=== PATIENT | female | born 1955 | race Caucasian/White ===

== ENCOUNTER 2021-03-15 04:45 | Inpatient (IN) ==
[2021-03-15 05:23] LABS: Basophils # 0.1 10*3/uL (0.0-0.2); Basophils % 1.1 % (0.0-0.8); Eosinophils # 1.5 10*3/uL (0.0-0.87); Eosinophils % 12.4 % (0.00-10.9); Hematocrit 51.2 VOL% (35.7-47.0); Hemoglobin 16.7 GM/DL (12.0-16.0); Immature Granulocytes % 0.5 %; Immature Granulocytes Absolute 0.06 #; Lymphocytes # 2.1 10*3/uL (1.4-4.0); Lymphocytes % 17.6 % (21.3-54.2); Mean Corpuscular HGB Conc 32.6 GM/DL (32-36); Mean Corpuscular Volume 92.6 FL (87-102); Mean Platelet Volume 9.3 FL (9.6-12.0); Monocytes % 7.6 % (1.7-12.7); Neutrophils % 60.8 % (38.7-73.9); Platelet Count 254 T/CUMM (130-400); Red Blood Count 5.53 MC/CUMM (3.8-5.5); Red Cell Distribution Width 13.5 % (9.3-17.3); White Blood Count 12.2 T/CUMM (4-12)
[2021-03-15 05:31] LABS: PT Patient Result 10.9 SECS (10.5-12.0); Partial Thromboplastin Time 25.6 SECS (23.9-33.8)
[2021-03-15 05:35] LABS: Albumin 4.1 G/DL (3.4-5.0); Bilirubin,Total 0.4 MG/DL (0.2-1.0); Calcium 9.3 MG/DL (8.5-10.1); Osmolality,Calculated 277.5 MOS/KG (273-304); Potassium 4.1 MMOL/L (3.5-5.1); Total Protein 7.3 G/DL (6.4-8.2)
[2021-03-15 05:42] LABS: Eosinophils 12 % (0-10); Lymphocytes 10 % (20-55); Platelet Estimate Adequate; Segmented Neutrophils 70 % (50-85); Total Cells Counted 100
[2021-03-15] MEDS ORDERED: methylPREDNISolone SOD SUC 125 MG/2 ML VIAL IV STA (06:24)
[2021-03-15] MEDS ORDERED: ALBUTEROL/IPRATROPIUM 3 ML NEB RESP TX STA (06:24)
[2021-03-15] MEDS ORDERED: cefTRIAXone 1,000 MG in SODIUM CHLORIDE 0.9% 100 ML IV STA (06:24)
[2021-03-15 06:53] LABS: ABG Base Excess 0.5 MMOL/L (-2.5-2.5); ABG HCO3 24.7 MMOL/L (20-26); ABG Oxygen Saturation 91.8 % (95-100); ABG PCO2 44.2 MM HG (35-48); ABG PH 7.379 (7.35-7.45); ABG PO2 66.5 MM HG (80-95); ABG TCO2 21.9 MMOL/L (23-27)
[2021-03-15] MEDS: ALBUTEROL 2.5 MG/3 ML NEB RESP TX STA ×2 (07:25→08:30)
[2021-03-15] MEDS ORDERED: ONDANSETRON 4 MG/2 ML VIAL IV PRN (08:01)
[2021-03-15] MEDS ORDERED: ACETAMINOPHEN 325 MG TABLET PO PRN (08:01)
[2021-03-15] MEDS ORDERED: GLUCAGON 1 MG VIAL IM PRN (08:01)
[2021-03-15] MEDS ORDERED: DEXTROSE 50% 25 GM/50 ML VIAL IV PRN (08:01)
[2021-03-15] MEDS: cefTRIAXone 1,000 MG in SODIUM CHLORIDE 0.9% 100 ML IV SCH (08:16)
[2021-03-15] MEDS: methylPREDNISolone SOD SUC 40 MG/1 ML VIAL IV SCH ×2 (08:17→16:46)
[2021-03-15] MEDS: ALBUTEROL/IPRATROPIUM 3 ML NEB RESP TX SCH ×3 (08:30→19:47)
[2021-03-15] MEDS: ENOXAPARIN 40 MG/0.4 ML SYRINGE SUBCUT SCH (08:38)
[2021-03-15] MEDS: AZITHROMYCIN INJ 500 MG in SODIUM CHLORIDE 0.9% 250 ML IV SCH (08:38)
[2021-03-15] MEDS: PANTOPRAZOLE 40 MG TABLET PO SCH (09:00)
[2021-03-15] MEDS: NICOTINE 21 MG/24 HR PATCH TRANSDERM SCH (09:59)
[2021-03-15] MEDS ORDERED: MAGNESIUM SULF RIDER 2 GM/50 ML PREMIX IV PRN (13:56)
[2021-03-15] MEDS ORDERED: POTASSIUM CHLORIDE RIDER 10 MEQ/100 ML PREMIX IV PRN (13:56)
[2021-03-15] MEDS: ASPIRIN EC 81 MG TABLET PO SCH (15:29)
[2021-03-16] MEDS: methylPREDNISolone SOD SUC 40 MG/1 ML VIAL IV SCH ×3 (00:52→16:03)
[2021-03-16] MEDS: ALBUTEROL/IPRATROPIUM 3 ML NEB RESP TX SCH ×4 (02:00→19:33)
[2021-03-16 05:21] LABS: Basophils % 0.1 % (0.0-0.8); Eosinophils % 0.1 % (0.00-10.9); Hematocrit 46.4 VOL% (35.7-47.0); Hemoglobin 15.7 GM/DL (12.0-16.0); Immature Granulocytes % 0.7 %; Immature Granulocytes Absolute 0.12 #; Lymphocytes # 0.9 10*3/uL (1.4-4.0); Lymphocytes % 5.5 % (21.3-54.2); Mean Corpuscular HGB Conc 33.8 GM/DL (32-36); Mean Corpuscular Volume 89.7 FL (87-102); Mean Platelet Volume 9.8 FL (9.6-12.0); Monocytes % 2.7 % (1.7-12.7); Neutrophils % 90.9 % (38.7-73.9); Platelet Count 264 T/CUMM (130-400); Red Blood Count 5.17 MC/CUMM (3.8-5.5); Red Cell Distribution Width 13.3 % (9.3-17.3); White Blood Count 16.1 T/CUMM (4-12)
[2021-03-16 05:45] LABS: Calcium 8.9 MG/DL (8.5-10.1); Osmolality,Calculated 274.8 MOS/KG (273-304); Potassium 3.8 MMOL/L (3.5-5.1); Risk Ratio 3.03
[2021-03-16 05:46] LABS: Band Neutrophils 1 % (0-10); Lymphocytes 4 % (20-55); Platelet Estimate Adequate; Segmented Neutrophils 91 % (50-85); Total Cells Counted 100
[2021-03-16] MEDS ORDERED: diphenhydrAMINE CAP 25 MG CAPSULE PO ONE (06:00)
[2021-03-16] MEDS ORDERED: DIAZEPAM 5 MG TABLET PO ONE (06:00)
[2021-03-16] MEDS: SODIUM CHLORIDE 0.9% 1,000 ML IV SCH ×2 (06:09→21:58)
[2021-03-16] MEDS: NICOTINE 21 MG/24 HR PATCH TRANSDERM SCH (08:02)
[2021-03-16] MEDS: cefTRIAXone 1,000 MG in SODIUM CHLORIDE 0.9% 100 ML IV SCH (08:03)
[2021-03-16] MEDS: ENOXAPARIN 40 MG/0.4 ML SYRINGE SUBCUT SCH (08:42)
[2021-03-16] MEDS: AZITHROMYCIN INJ 500 MG in SODIUM CHLORIDE 0.9% 250 ML IV SCH (08:51)
[2021-03-16] MEDS: PANTOPRAZOLE 40 MG TABLET PO SCH (10:48)
[2021-03-16] MEDS: ASPIRIN EC 81 MG TABLET PO SCH (10:49)
[2021-03-16] MEDS ORDERED: HEPARIN/NACL 0.9% 2 UNITS/ML 2,000 UNIT/1,000 ML BAG IV ONE (10:53)
[2021-03-16] MEDS ORDERED: LIDOCAINE 1% 20 ML VIAL ONE (10:53)
[2021-03-16] MEDS ORDERED: MIDAZOLAM 2 MG/2 ML VIAL ONE (11:33)
[2021-03-16] MEDS ORDERED: HYDROmorphone 2 MG/1 ML VIAL ONE (11:33)
[2021-03-16] MEDS ORDERED: diphenhydrAMINE 50 MG/1 ML VIAL ONE (11:44)
[2021-03-16] MEDS ORDERED: ZALEPLON 5 MG CAPSULE PO PRN (12:25)
[2021-03-16] MEDS: METOPROLOL SUCCINATE XL 25 MG TABLET PO SCH (13:43)
[2021-03-16] MEDS ORDERED: ROSUVASTATIN 20 MG TABLET PO SCH (21:00)
[2021-03-17] MEDS: ALBUTEROL/IPRATROPIUM 3 ML NEB RESP TX SCH ×2 (00:02→07:35)
[2021-03-17] MEDS: methylPREDNISolone SOD SUC 40 MG/1 ML VIAL IV SCH ×2 (01:02→09:20)
[2021-03-17 06:03] LABS: Basophils % 0.1 % (0.0-0.8); Hematocrit 42.3 VOL% (35.7-47.0); Immature Granulocytes % 0.7 %; Immature Granulocytes Absolute 0.11 #; Lymphocytes # 0.7 10*3/uL (1.4-4.0); Lymphocytes % 4.6 % (21.3-54.2); Mean Corpuscular HGB Conc 33.1 GM/DL (32-36); Mean Corpuscular Volume 92.2 FL (87-102); Mean Platelet Volume 9.9 FL (9.6-12.0); Monocytes % 2.4 % (1.7-12.7); Neutrophils % 92.2 % (38.7-73.9); Platelet Count 238 T/CUMM (130-400); Red Blood Count 4.59 MC/CUMM (3.8-5.5); Red Cell Distribution Width 13.9 % (9.3-17.3); White Blood Count 15.7 T/CUMM (4-12)
[2021-03-17 06:16] LABS: Calcium 8.5 MG/DL (8.5-10.1); Potassium 4.2 MMOL/L (3.5-5.1)
[2021-03-17 06:38] LABS: Lymphocytes 4 % (20-55); Platelet Estimate Normal; Segmented Neutrophils 95 % (50-85); Total Cells Counted 100
[2021-03-17] MEDS ORDERED: AZITHROMYCIN 250 MG TABLET PO SCH (09:00)
[2021-03-17] MEDS: NICOTINE 21 MG/24 HR PATCH TRANSDERM SCH (09:17)
[2021-03-17] MEDS: METOPROLOL SUCCINATE XL 25 MG TABLET PO SCH (09:20)
[2021-03-17] MEDS: cefTRIAXone 1,000 MG in SODIUM CHLORIDE 0.9% 100 ML IV SCH (09:20)
[2021-03-17] MEDS: PANTOPRAZOLE 40 MG TABLET PO SCH (09:20)
[2021-03-17] MEDS: ASPIRIN EC 81 MG TABLET PO SCH (09:20)
[2021-03-17 11:50] VITALS: BP 141/65
== END 2021-03-17 14:55 | disposition home or self-care (01) | DRG 281 ==
LOC: N.ED 04:45 → N.EDINP 04:45 → SUATTDRO 08:01 → N.5E 08:48
PROVIDERS: ADMIT Phlebology; ATTEND Internal Medicine
PROC: CLCCHCL (ICD-10-PCS; 2021-03-16 11:45)

== ENCOUNTER 2022-09-11 22:31 | Inpatient (IN) ==
[2022-09-11] MEDS ORDERED: ALBUTEROL/IPRATROPIUM 3 ML NEB RESP TX STA (22:39)
[2022-09-11 22:50] LABS: Basophils # 0.1 10*3/uL (0.0-0.2); Basophils % 0.9 % (0.0-0.8); Eosinophils # 0.7 10*3/uL (0.0-0.87); Eosinophils % 7.6 % (0.00-10.9); Hematocrit 38.8 VOL% (35.7-47.0); Hemoglobin 11.6 GM/DL (12.0-16.0); Immature Granulocytes % 0.4 %; Immature Granulocytes Absolute 0.04 #; Lymphocytes # 1.7 10*3/uL (1.4-4.0); Lymphocytes % 18.5 % (21.3-54.2); Mean Corpuscular HGB Conc 29.9 GM/DL (32-36); Mean Platelet Volume 9.2 FL (9.6-12.0); Monocytes # 1.1 10*3/uL (0.11-0.8); Monocytes % 12.4 % (1.7-12.7); Neutrophils % 60.2 % (38.7-73.9); Platelet Count 328 T/CUMM (130-400); Red Blood Count 5.04 MC/CUMM (3.8-5.5); Red Cell Distribution Width 16.4 % (9.3-17.3); White Blood Count 9.1 T/CUMM (4-12)
[2022-09-11] MEDS ORDERED: methylPREDNISolone SOD SUC 125 MG/2 ML VIAL ONE (22:50)
[2022-09-11] MEDS ORDERED: methylPREDNISolone SOD SUC 125 MG/2 ML VIAL IV STA (22:52)
[2022-09-11] MEDS ORDERED: AZITHROMYCIN INJ 500 MG in SODIUM CHLORIDE 0.9% 250 ML IV STA (23:06)
[2022-09-11] MEDS ORDERED: cefTRIAXone 1,000 MG in SODIUM CHLORIDE 0.9% 100 ML IV STA (23:06)
[2022-09-11 23:13] LABS: Alanine Aminotransferase 29 U/L (13-56); Albumin 3.9 G/DL (3.4-5.0); Alkaline Phosphatase 56 U/L (45-117); Aspartate Amino Transferase 25 U/L (0-37); Bilirubin,Total < 0.39 MG/DL (0.20-1.00); Blood Urea Nitrogen 9 MG/DL (7-18); Calcium 9.1 MG/DL (8.5-10.1); Carbon Dioxide 28 MMOL/L (21-32); Chloride 108 MMOL/L (98-107); Glucose 142 MG/DL (74-106); Osmolality,Calculated 283.1 MOS/KG (273-304); Potassium 4.2 MMOL/L (3.5-5.1); Sodium 142 MMOL/L (136-145); Total Protein 6.8 G/DL (6.4-8.2)
[2022-09-12] MEDS ORDERED: AMINOPHYLLINE 250 MG in SODIUM CHLORIDE 0.9% 100 ML IV ONE (00:33)
[2022-09-12] MEDS ORDERED: ALBUTEROL NEB SOLN 5 MG/ML 20 ML/BOTTLE CONT NEB SCH (01:00)
[2022-09-12] MEDS ORDERED: TERBUTALINE 1 MG/1 ML VIAL SUBCUT ONE (01:38)
[2022-09-12] MEDS ORDERED: ALBUTEROL/IPRATROPIUM 3 ML NEB RESP TX STA (01:40)
[2022-09-12 02:14] LABS: Arterial Base Excess iSTAT -2 MMOL/L (-2.5-2.5); Arterial Bicarbonate iSTAT 25.7 MMOL/L (20-26); Arterial O2 Saturation iSTAT 90 % (95-100); Arterial PCO2 iSTAT 55 MM HG (35-48); Arterial PO2 iSTAT 69 MM HG (80-95); Arterial Total CO2 iSTAT 27 MMO/L (23-27); Arterial pH iSTAT 7.275 (7.35-7.45)
[2022-09-12] MEDS ORDERED: ONDANSETRON 4 MG/2 ML VIAL IV PRN (03:44)
[2022-09-12] MEDS ORDERED: NICOTINE 21 MG/24 HR PATCH TRANSDERM PRN (03:44)
[2022-09-12] MEDS ORDERED: ACETAMINOPHEN 325 MG TABLET PO PRN (03:44)
[2022-09-12 04:35] LABS: Basophils # 0.1 10*3/uL (0.0-0.2); Basophils % 0.7 % (0.0-0.8); Eosinophils % 0.4 % (0.00-10.9); Hematocrit 36.4 VOL% (35.7-47.0); Hemoglobin 11.1 GM/DL (12.0-16.0); Immature Granulocytes % 0.7 %; Immature Granulocytes Absolute 0.05 #; Lymphocytes # 0.3 10*3/uL (1.4-4.0); Lymphocytes % 3.8 % (21.3-54.2); Mean Corpuscular HGB Conc 30.5 GM/DL (32-36); Mean Corpuscular Volume 76.5 FL (87-102); Mean Platelet Volume 9.7 FL (9.6-12.0); Monocytes # 0.1 10*3/uL (0.11-0.8); Monocytes % 1.6 % (1.7-12.7); Neutrophils % 92.8 % (38.7-73.9); Platelet Count 297 T/CUMM (130-400); Red Blood Count 4.76 MC/CUMM (3.8-5.5); White Blood Count 7.7 T/CUMM (4-12)
[2022-09-12 05:07] LABS: Band Neutrophils 1 % (0-10); Lymphocytes 3 % (20-55); Microcytosis Slight; Platelet Estimate Normal; Total Cells Counted 100
[2022-09-12 05:15] LABS: Calcium 8.6 MG/DL (8.5-10.1); Osmolality,Calculated 278.5 MOS/KG (273-304); Potassium 3.4 MMOL/L (3.5-5.1)
[2022-09-12] MEDS ORDERED: ALBUTEROL/IPRATROPIUM 3 ML NEB RESP TX SCH (07:00)
[2022-09-12] MEDS ORDERED: methylPREDNISolone SOD SUC 40 MG/1 ML VIAL IV SCH (08:00)
[2022-09-12 08:28] LABS: Arterial Base Excess iSTAT 2 MMOL/L (-2.5-2.5); Arterial Bicarbonate iSTAT 27.7 MMOL/L (20-26); Arterial O2 Saturation iSTAT 100 % (95-100); Arterial PCO2 iSTAT 49 MM HG (35-48); Arterial PO2 iSTAT 231 MM HG (80-95); Arterial Total CO2 iSTAT 29 MMO/L (23-27); Arterial pH iSTAT 7.364 (7.35-7.45)
[2022-09-12] MEDS ORDERED: ALPRAZolam 0.25 MG TABLET PO ONE (09:15)
[2022-09-12] MEDS ORDERED: methylPREDNISolone SOD SUC 40 MG/1 ML VIAL IV ONE (09:22)
[2022-09-12] MEDS: ENOXAPARIN 40 MG/0.4 ML SYRINGE SUBCUT SCH (09:56)
[2022-09-12] MEDS: ROSUVASTATIN 20 MG TABLET PO SCH (09:56)
[2022-09-12] MEDS: PANTOPRAZOLE 40 MG TABLET PO SCH (09:56)
[2022-09-12] MEDS: MONTELUKAST 10 MG TABLET PO SCH (09:56)
[2022-09-12] MEDS: THEOPHYLLINE ER (24 HR) 400 MG CAPSULE PO SCH (09:56)
[2022-09-12 10:58] LABS: Arterial Base Excess iSTAT 4 MMOL/L (-2.5-2.5); Arterial Bicarbonate iSTAT 30.1 MMOL/L (20-26); Arterial O2 Saturation iSTAT 99 % (95-100); Arterial PCO2 iSTAT 53 MM HG (35-48); Arterial PO2 iSTAT 140 MM HG (80-95); Arterial Total CO2 iSTAT 32 MMO/L (23-27); Arterial pH iSTAT 7.363 (7.35-7.45)
[2022-09-12] MEDS: ALPRAZolam 0.25 MG TABLET PO PRN (14:51)
[2022-09-12] MEDS: ALBUTEROL/IPRATROPIUM 3 ML NEB RESP TX SCH ×3 (15:33→23:40)
[2022-09-12] MEDS: methylPREDNISolone SOD SUC 40 MG/1 ML VIAL IV SCH (17:55)
[2022-09-12] MEDS: MORPHINE 2 MG/1 ML SYRINGE IV PRN (18:30)
[2022-09-12] MEDS: ASPIRIN EC 81 MG TABLET PO SCH (20:51)
[2022-09-12] MEDS: METOPROLOL SUCCINATE XL 25 MG TABLET PO SCH (20:51)
[2022-09-12] MEDS: cefTRIAXone 1,000 MG in SODIUM CHLORIDE 0.9% 100 ML IV SCH (22:58)
[2022-09-13] MEDS: ALPRAZolam 0.25 MG TABLET PO PRN ×3 (00:02→17:34)
[2022-09-13] MEDS: methylPREDNISolone SOD SUC 40 MG/1 ML VIAL IV SCH ×3 (00:30→17:38)
[2022-09-13] MEDS: AZITHROMYCIN INJ 250 MG in SODIUM CHLORIDE 0.9% 250 ML IV SCH ×2 (00:53→23:46)
[2022-09-13] MEDS: ALBUTEROL/IPRATROPIUM 3 ML NEB RESP TX SCH ×6 (03:32→23:28)
[2022-09-13] MEDS: MORPHINE 2 MG/1 ML SYRINGE IV PRN (03:58)
[2022-09-13 04:04] LABS: Arterial Base Excess iSTAT 5 MMOL/L (-2.5-2.5); Arterial Bicarbonate iSTAT 31.9 MMOL/L (20-26); Arterial O2 Saturation iSTAT 43 % (95-100); Arterial PCO2 iSTAT 58 MM HG (35-48); Arterial PO2 iSTAT 26 MM HG (80-95); Arterial Total CO2 iSTAT 34 MMO/L (23-27); Arterial pH iSTAT 7.349 (7.35-7.45)
[2022-09-13 04:04] LABS: Arterial Base Excess iSTAT 3 MMOL/L (-2.5-2.5); Arterial O2 Saturation iSTAT 65 % (95-100); Arterial PCO2 iSTAT 59 MM HG (35-48); Arterial PO2 iSTAT 37 MM HG (80-95); Arterial Total CO2 iSTAT 33 MMO/L (23-27); Arterial pH iSTAT 7.328 (7.35-7.45)
[2022-09-13 04:11] LABS: Arterial Base Excess iSTAT 3 MMOL/L (-2.5-2.5); Arterial Bicarbonate iSTAT 30.5 MMOL/L (20-26); Arterial O2 Saturation iSTAT 96 % (95-100); Arterial PCO2 iSTAT 57 MM HG (35-48); Arterial PO2 iSTAT 90 MM HG (80-95); Arterial Total CO2 iSTAT 32 MMO/L (23-27); Arterial pH iSTAT 7.339 (7.35-7.45)
[2022-09-13 05:49] LABS: Osmolality,Calculated 280.4 MOS/KG (273-304); Potassium 4.4 MMOL/L (3.5-5.1)
[2022-09-13] MEDS: ENOXAPARIN 40 MG/0.4 ML SYRINGE SUBCUT SCH (08:25)
[2022-09-13] MEDS: MONTELUKAST 10 MG TABLET PO SCH (08:26)
[2022-09-13] MEDS: PANTOPRAZOLE 40 MG TABLET PO SCH (08:26)
[2022-09-13] MEDS: THEOPHYLLINE ER (24 HR) 400 MG CAPSULE PO SCH (08:26)
[2022-09-13] MEDS: METOPROLOL SUCCINATE XL 25 MG TABLET PO SCH (20:40)
[2022-09-13] MEDS: ASPIRIN EC 81 MG TABLET PO SCH (20:40)
[2022-09-13] MEDS: cefTRIAXone 1,000 MG in SODIUM CHLORIDE 0.9% 100 ML IV SCH (22:17)
[2022-09-14] MEDS: methylPREDNISolone SOD SUC 40 MG/1 ML VIAL IV SCH ×3 (01:10→16:54)
[2022-09-14] MEDS: ALBUTEROL/IPRATROPIUM 3 ML NEB RESP TX SCH ×6 (03:14→23:56)
[2022-09-14] MEDS: ALPRAZolam 0.25 MG TABLET PO PRN ×2 (04:10→10:22)
[2022-09-14 04:25] LABS: Arterial Base Excess iSTAT 5 MMOL/L (-2.5-2.5); Arterial Bicarbonate iSTAT 31.6 MMOL/L (20-26); Arterial O2 Saturation iSTAT 98 % (95-100); Arterial PCO2 iSTAT 52 MM HG (35-48); Arterial PO2 iSTAT 114 MM HG (80-95); Arterial Total CO2 iSTAT 33 MMO/L (23-27)
[2022-09-14 04:39] LABS: Basophils % 0.1 % (0.0-0.8); Hematocrit 37.4 VOL% (35.7-47.0); Hemoglobin 11.2 GM/DL (12.0-16.0); Immature Granulocytes % 0.4 %; Immature Granulocytes Absolute 0.05 #; Lymphocytes # 0.5 10*3/uL (1.4-4.0); Lymphocytes % 4.4 % (21.3-54.2); Mean Corpuscular HGB Conc 29.9 GM/DL (32-36); Mean Corpuscular Volume 76.3 FL (87-102); Monocytes # 0.3 10*3/uL (0.11-0.8); Monocytes % 2.7 % (1.7-12.7); Neutrophils % 92.4 % (38.7-73.9); Platelet Count 340 T/CUMM (130-400); Red Cell Distribution Width 16.2 % (9.3-17.3)
[2022-09-14 05:08] LABS: Hypochromia 1+; Lymphocytes 5 % (20-55); Microcytosis 1+; Platelet Estimate Adequate; Total Cells Counted 100
[2022-09-14 05:09] LABS: Calcium 8.8 MG/DL (8.5-10.1); Osmolality,Calculated 286.3 MOS/KG (273-304); Potassium 4.3 MMOL/L (3.5-5.1)
[2022-09-14] MEDS: MONTELUKAST 10 MG TABLET PO SCH (09:20)
[2022-09-14] MEDS: THEOPHYLLINE ER (24 HR) 400 MG CAPSULE PO SCH (09:20)
[2022-09-14] MEDS: PANTOPRAZOLE 40 MG TABLET PO SCH (09:20)
[2022-09-14] MEDS: ENOXAPARIN 40 MG/0.4 ML SYRINGE SUBCUT SCH (09:21)
[2022-09-14] MEDS: MORPHINE 2 MG/1 ML SYRINGE IV PRN (14:14)
[2022-09-14] MEDS: ASPIRIN EC 81 MG TABLET PO SCH (21:09)
[2022-09-14] MEDS: METOPROLOL SUCCINATE XL 25 MG TABLET PO SCH (21:09)
[2022-09-14] MEDS: cefTRIAXone 1,000 MG in SODIUM CHLORIDE 0.9% 100 ML IV SCH (22:39)
[2022-09-14] MEDS: AZITHROMYCIN INJ 250 MG in SODIUM CHLORIDE 0.9% 250 ML IV SCH (23:11)
[2022-09-15] MEDS: methylPREDNISolone SOD SUC 40 MG/1 ML VIAL IV SCH ×3 (01:10→18:17)
[2022-09-15] MEDS: ALBUTEROL/IPRATROPIUM 3 ML NEB RESP TX SCH ×6 (03:43→23:26)
[2022-09-15 05:11] LABS: Basophils % 0.1 % (0.0-0.8); Hemoglobin 10.9 GM/DL (12.0-16.0); Immature Granulocytes % 0.4 %; Immature Granulocytes Absolute 0.05 #; Lymphocytes # 0.5 10*3/uL (1.4-4.0); Lymphocytes % 3.8 % (21.3-54.2); Mean Corpuscular HGB Conc 30.3 GM/DL (32-36); Mean Corpuscular Volume 75.2 FL (87-102); Mean Platelet Volume 10.1 FL (9.6-12.0); Monocytes # 0.4 10*3/uL (0.11-0.8); Monocytes % 2.9 % (1.7-12.7); Neutrophils % 92.8 % (38.7-73.9); Platelet Count 343 T/CUMM (130-400); Red Blood Count 4.79 MC/CUMM (3.8-5.5); Red Cell Distribution Width 16.2 % (9.3-17.3); White Blood Count 12.3 T/CUMM (4-12)
[2022-09-15 05:32] LABS: Calcium 8.6 MG/DL (8.5-10.1); Osmolality,Calculated 286.3 MOS/KG (273-304); Potassium 4.3 MMOL/L (3.5-5.1)
[2022-09-15 05:37] LABS: Lymphocytes 1 % (20-55); Platelet Estimate Adequate; Total Cells Counted 100
[2022-09-15 05:38] LABS: Hypochromia Slight; Microcytosis Slight
[2022-09-15] MEDS: ALPRAZolam 0.25 MG TABLET PO PRN ×2 (05:59→20:51)
[2022-09-15] MEDS: PANTOPRAZOLE 40 MG TABLET PO SCH (08:35)
[2022-09-15] MEDS: ENOXAPARIN 40 MG/0.4 ML SYRINGE SUBCUT SCH (08:35)
[2022-09-15] MEDS: MONTELUKAST 10 MG TABLET PO SCH (08:35)
[2022-09-15] MEDS: THEOPHYLLINE ER (24 HR) 400 MG CAPSULE PO SCH (08:36)
[2022-09-15] MEDS: ASPIRIN EC 81 MG TABLET PO SCH (20:51)
[2022-09-15] MEDS: METOPROLOL SUCCINATE XL 25 MG TABLET PO SCH (20:52)
[2022-09-15] MEDS: cefTRIAXone 1,000 MG in SODIUM CHLORIDE 0.9% 100 ML IV SCH (22:38)
[2022-09-15] MEDS: AZITHROMYCIN INJ 250 MG in SODIUM CHLORIDE 0.9% 250 ML IV SCH (23:23)
[2022-09-16] MEDS: methylPREDNISolone SOD SUC 40 MG/1 ML VIAL IV SCH ×3 (01:25→18:20)
[2022-09-16] MEDS: ALBUTEROL/IPRATROPIUM 3 ML NEB RESP TX SCH ×2 (03:22→08:00)
[2022-09-16] MEDS: PANTOPRAZOLE 40 MG TABLET PO SCH (08:23)
[2022-09-16] MEDS: THEOPHYLLINE ER (24 HR) 400 MG CAPSULE PO SCH (08:23)
[2022-09-16] MEDS: MONTELUKAST 10 MG TABLET PO SCH ×2 (08:23→21:57)
[2022-09-16] MEDS: ENOXAPARIN 40 MG/0.4 ML SYRINGE SUBCUT SCH (08:24)
[2022-09-16] MEDS: ROSUVASTATIN 20 MG TABLET PO SCH (09:39)
[2022-09-16] MEDS ORDERED: IPRATROPIUM 500 MCG/2.5 ML NEB RESP TX PRN (10:44)
[2022-09-16] MEDS ORDERED: EPINEPHrine 1 MG/ML VIAL SUBCUT ONE (10:46)
[2022-09-16] MEDS: ALBUTEROL 2 MG TABLET PO SCH ×2 (13:41→21:56)
[2022-09-16] MEDS: IPRATROPIUM 500 MCG/2.5 ML NEB RESP TX SCH ×2 (13:45→19:15)
[2022-09-16] MEDS: ASPIRIN EC 81 MG TABLET PO SCH (21:57)
[2022-09-16] MEDS: METOPROLOL SUCCINATE XL 25 MG TABLET PO SCH (21:57)
[2022-09-17] MEDS: IPRATROPIUM 500 MCG/2.5 ML NEB RESP TX SCH ×4 (00:45→19:39)
[2022-09-17] MEDS: cefTRIAXone 1,000 MG in SODIUM CHLORIDE 0.9% 100 ML IV SCH ×2 (00:50→23:41)
[2022-09-17] MEDS: AZITHROMYCIN INJ 250 MG in SODIUM CHLORIDE 0.9% 250 ML IV SCH (01:40)
[2022-09-17] MEDS: methylPREDNISolone SOD SUC 40 MG/1 ML VIAL IV SCH ×3 (01:40→17:45)
[2022-09-17 05:41] LABS: Hematocrit 37.8 VOL% (35.7-47.0); Hemoglobin 11.6 GM/DL (12.0-16.0); Immature Granulocytes % 0.5 %; Immature Granulocytes Absolute 0.05 #; Lymphocytes # 0.5 10*3/uL (1.4-4.0); Lymphocytes % 4.8 % (21.3-54.2); Mean Corpuscular HGB Conc 30.7 GM/DL (32-36); Mean Corpuscular Volume 75.9 FL (87-102); Monocytes # 0.4 10*3/uL (0.11-0.8); Neutrophils % 90.7 % (38.7-73.9); Platelet Count 335 T/CUMM (130-400); Red Blood Count 4.98 MC/CUMM (3.8-5.5); Red Cell Distribution Width 15.9 % (9.3-17.3); White Blood Count 9.3 T/CUMM (4-12)
[2022-09-17] MEDS: ALBUTEROL 2 MG TABLET PO SCH ×3 (05:52→21:38)
[2022-09-17 06:04] LABS: Osmolality,Calculated 285.1 MOS/KG (273-304); Potassium 4.5 MMOL/L (3.5-5.1)
[2022-09-17 07:34] LABS: Lymphocytes 1 % (20-55); Total Cells Counted 100
[2022-09-17 07:35] LABS: Microcytosis 1+; Ovalocytes Few; Platelet Estimate Normal
[2022-09-17 07:36] LABS: Hypochromia Slight
[2022-09-17] MEDS: THEOPHYLLINE ER (24 HR) 400 MG CAPSULE PO SCH (08:55)
[2022-09-17] MEDS: MONTELUKAST 10 MG TABLET PO SCH ×2 (08:55→21:38)
[2022-09-17] MEDS: PANTOPRAZOLE 40 MG TABLET PO SCH (08:55)
[2022-09-17] MEDS: ENOXAPARIN 40 MG/0.4 ML SYRINGE SUBCUT SCH (08:56)
[2022-09-17] MEDS: CLINDAMYCIN INJ 300 MG/50 ML PREMIX IV SCH (18:15)
[2022-09-17] MEDS: ALPRAZolam 0.25 MG TABLET PO PRN (19:30)
[2022-09-17] MEDS: METOPROLOL SUCCINATE XL 25 MG TABLET PO SCH (21:38)
[2022-09-17] MEDS: ASPIRIN EC 81 MG TABLET PO SCH (21:38)
[2022-09-18] MEDS: IPRATROPIUM 500 MCG/2.5 ML NEB RESP TX SCH ×4 (00:29→19:30)
[2022-09-18] MEDS: CLINDAMYCIN INJ 300 MG/50 ML PREMIX IV SCH ×5 (00:59→23:07)
[2022-09-18] MEDS: methylPREDNISolone SOD SUC 40 MG/1 ML VIAL IV SCH ×3 (02:10→17:46)
[2022-09-18] MEDS: ALBUTEROL 2 MG TABLET PO SCH ×3 (06:04→21:22)
[2022-09-18] MEDS: ENOXAPARIN 40 MG/0.4 ML SYRINGE SUBCUT SCH (09:52)
[2022-09-18] MEDS: THEOPHYLLINE ER (24 HR) 400 MG CAPSULE PO SCH (09:53)
[2022-09-18] MEDS: MONTELUKAST 10 MG TABLET PO SCH ×2 (09:53→20:40)
[2022-09-18] MEDS: PANTOPRAZOLE 40 MG TABLET PO SCH (09:53)
[2022-09-18] MEDS: ALPRAZolam 0.25 MG TABLET PO PRN (17:46)
[2022-09-18] MEDS: ASPIRIN EC 81 MG TABLET PO SCH (20:40)
[2022-09-18] MEDS: METOPROLOL SUCCINATE XL 25 MG TABLET PO SCH (20:40)
[2022-09-18] MEDS: cefTRIAXone 1,000 MG in SODIUM CHLORIDE 0.9% 100 ML IV SCH (22:35)
[2022-09-19] MEDS: IPRATROPIUM 500 MCG/2.5 ML NEB RESP TX SCH ×4 (00:25→19:21)
[2022-09-19] MEDS: methylPREDNISolone SOD SUC 40 MG/1 ML VIAL IV SCH ×3 (00:57→20:37)
[2022-09-19 05:16] LABS: Basophils % 0.1 % (0.0-0.8); Hematocrit 38.9 VOL% (35.7-47.0); Hemoglobin 11.7 GM/DL (12.0-16.0); Immature Granulocytes % 0.7 %; Immature Granulocytes Absolute 0.08 #; Lymphocytes # 0.5 10*3/uL (1.4-4.0); Lymphocytes % 3.8 % (21.3-54.2); Mean Corpuscular HGB Conc 30.1 GM/DL (32-36); Mean Platelet Volume 9.8 FL (9.6-12.0); Monocytes # 0.3 10*3/uL (0.11-0.8); Monocytes % 2.7 % (1.7-12.7); Neutrophils % 92.7 % (38.7-73.9); Platelet Count 348 T/CUMM (130-400); Red Blood Count 5.19 MC/CUMM (3.8-5.5); Red Cell Distribution Width 15.9 % (9.3-17.3); White Blood Count 12.1 T/CUMM (4-12)
[2022-09-19] MEDS: ALBUTEROL 2 MG TABLET PO SCH ×3 (05:31→22:35)
[2022-09-19] MEDS: CLINDAMYCIN INJ 300 MG/50 ML PREMIX IV SCH (05:32)
[2022-09-19 05:49] LABS: Calcium 8.8 MG/DL (8.5-10.1); Osmolality,Calculated 275.8 MOS/KG (273-304); Potassium 4.3 MMOL/L (3.5-5.1)
[2022-09-19 05:53] LABS: Hypochromia 1+; Lymphocytes 3 % (20-55); Microcytosis 1+; Total Cells Counted 100
[2022-09-19 05:54] LABS: Ovalocytes Slight; Platelet Estimate Normal
[2022-09-19] MEDS: ENOXAPARIN 40 MG/0.4 ML SYRINGE SUBCUT SCH (09:02)
[2022-09-19] MEDS: MONTELUKAST 10 MG TABLET PO SCH ×2 (09:03→20:35)
[2022-09-19] MEDS: PANTOPRAZOLE 40 MG TABLET PO SCH (09:03)
[2022-09-19] MEDS: THEOPHYLLINE ER (24 HR) 400 MG CAPSULE PO SCH (09:03)
[2022-09-19] MEDS: SULFAMETHOX/TRIMETHOPRIM 800-160 MG TABLET PO SCH ×2 (11:26→20:35)
[2022-09-19] MEDS: ALPRAZolam 0.25 MG TABLET PO PRN (18:10)
[2022-09-19] MEDS: METOPROLOL SUCCINATE XL 25 MG TABLET PO SCH (20:35)
[2022-09-19] MEDS: ASPIRIN EC 81 MG TABLET PO SCH (20:35)
[2022-09-20] MEDS: IPRATROPIUM 500 MCG/2.5 ML NEB RESP TX SCH ×4 (00:44→19:47)
[2022-09-20] MEDS: ALBUTEROL 2 MG TABLET PO SCH ×3 (06:47→21:15)
[2022-09-20] MEDS: ENOXAPARIN 40 MG/0.4 ML SYRINGE SUBCUT SCH (09:18)
[2022-09-20] MEDS: PANTOPRAZOLE 40 MG TABLET PO SCH (09:25)
[2022-09-20] MEDS: ROSUVASTATIN 20 MG TABLET PO SCH (09:25)
[2022-09-20] MEDS: SULFAMETHOX/TRIMETHOPRIM 800-160 MG TABLET PO SCH ×2 (09:25→21:15)
[2022-09-20] MEDS: MONTELUKAST 10 MG TABLET PO SCH ×2 (09:25→21:15)
[2022-09-20] MEDS: THEOPHYLLINE ER (24 HR) 400 MG CAPSULE PO SCH (09:25)
[2022-09-20] MEDS: methylPREDNISolone SOD SUC 40 MG/1 ML VIAL IV SCH ×2 (09:26→21:18)
[2022-09-20] MEDS ORDERED: ALPRAZolam 0.25 MG TABLET PO PRN (15:30)
[2022-09-20] MEDS: FLUTICASONE 50 MCG NASAL SPRAY 16 GM BOTTLE BOTH NARES SCH (17:06)
[2022-09-20] MEDS: METOPROLOL SUCCINATE XL 25 MG TABLET PO SCH (21:15)
[2022-09-20] MEDS: ASPIRIN EC 81 MG TABLET PO SCH (21:15)
[2022-09-21] MEDS: IPRATROPIUM 500 MCG/2.5 ML NEB RESP TX SCH ×2 (00:39→07:24)
[2022-09-21 05:40] LABS: Calcium 8.8 MG/DL (8.5-10.1); Osmolality,Calculated 278.5 MOS/KG (273-304); Potassium 4.8 MMOL/L (3.5-5.1)
[2022-09-21 06:18] LABS: Basophils % 0.2 % (0.0-0.8); Eosinophils % 0.1 % (0.00-10.9); Hematocrit 38.5 VOL% (35.7-47.0); Hemoglobin 11.9 GM/DL (12.0-16.0); Immature Granulocytes % 1.2 %; Immature Granulocytes Absolute 0.19 #; Lymphocytes % 12.6 % (21.3-54.2); Mean Corpuscular HGB Conc 30.9 GM/DL (32-36); Mean Corpuscular Volume 74.6 FL (87-102); Mean Platelet Volume 9.9 FL (9.6-12.0); Monocytes % 6.4 % (1.7-12.7); Neutrophils % 79.5 % (38.7-73.9); Platelet Count 434 T/CUMM (130-400); Red Blood Count 5.16 MC/CUMM (3.8-5.5); Red Cell Distribution Width 16.4 % (9.3-17.3); White Blood Count 15.8 T/CUMM (4-12)
[2022-09-21] MEDS: THEOPHYLLINE ER (24 HR) 400 MG CAPSULE PO SCH (09:05)
[2022-09-21] MEDS: ENOXAPARIN 40 MG/0.4 ML SYRINGE SUBCUT SCH (09:05)
[2022-09-21] MEDS: SULFAMETHOX/TRIMETHOPRIM 800-160 MG TABLET PO SCH (09:05)
[2022-09-21] MEDS: PANTOPRAZOLE 40 MG TABLET PO SCH (09:05)
[2022-09-21] MEDS: methylPREDNISolone SOD SUC 40 MG/1 ML VIAL IV SCH (09:05)
[2022-09-21] MEDS: MONTELUKAST 10 MG TABLET PO SCH (09:06)
[2022-09-21] MEDS: FLUTICASONE 50 MCG NASAL SPRAY 16 GM BOTTLE BOTH NARES SCH (10:03)
[2022-09-21 11:59] VITALS: BP 121/58
== END 2022-09-21 13:52 | disposition home health service (06) | DRG 189 ==
LOC: N.ED 22:31 → N.5E 09-12 03:43 → SUATTDRO 09-12 03:43 → N.5E 09-12 07:55 → N.CC 09-12 08:48 → N.5E 09-19 17:41
PROVIDERS: ADMIT Specialist; ATTEND Internal Medicine